=== PATIENT | male | born 1990 | race American Indian/Alaskan Native ===

== ENCOUNTER 2019-01-30 18:04 | Emergency (ER) | payer OTHER ==
--- NOTE | 2019-01-30 18:09 | Event Note ---
ED Screening Note ED Screening Note: SYNCOPE WITH FACIAL TRAUMA NO HX AMBULATORY This initial assessment/diagnostic orders/clinical plan/treatment(s) is/are subject to change based on patients health status, clinical progression and re- assessment by fellow clinical providers in the ED. Further treatment and workup at subsequent clinical providers discretion. Patient/guardian urged not to elope from the ED as their condition may be serious if not clinically assessed and managed. Initial orders include:
--- NOTE | 2019-01-30 18:58 | Cat Scan Report ---
PROCEDURE: CT HEAD/BRAIN WO CON TECHNIQUE: Computerized tomography of the head was performed without contrast material. CT DOSE LENGTH PRODUCT: 920.5 mGycm HISTORY: Syncope COMPARISONS: None . FINDINGS: No CT evidence of intracranial mass, hemorrhage, acute territorial infarction, or hydrocephalus. Intr acranial arteries are symmetric in density. Calvarium is intact. There is fluid in the right maxillar y sinus. There is also fluid in left sphenoid sinus. There is bilateral ethmoid sinus mucosal thicken ing. Mastoids are aerated. IMPRESSION: No CT evidence of acute intracranial abnormality . Sinus disease This document is electronically signed by Ella García MD., January 30 2019 06:56:00 PM ET
--- NOTE | 2019-01-30 19:02 | Cat Scan Report ---
PROCEDURE: CT FACIAL BONES WO CON TECHNIQUE: CT images of the maxillofacial structures were obtained without the use of IV contrast HISTORY: SYNCOPE COMPARISONS: None available FINDINGS: There is an acute depressed fracture of the right orbital floor. Fracture fragments are displaced inf eriorly by 4 mm. There is air in the right orbit. There is no inferior herniation of the inferior rec tus muscle. The right globe appears grossly unremarkable in CT appearance. There is also suspicion for a minimally displaced fracture of the right nasal bone. There is fluid within bilateral maxillary sinuses and the left sphenoid sinus. There is bilateral eth moid sinus mucosal thickening. Visualized portions of the mastoids are aerated. Temporomandibular joints are intact. There is dental disease. IMPRESSION: Acute right orbital floor fracture. Probable minimally displaced fracture of the right nasal bone This document is electronically signed by Ella García MD., January 30 2019 07:00:46 PM ET
[2019-01-30 19:06] LABS: Basophils % (Auto) 0.2 % (0.0-1.8); Eosinophils # (Auto) 0.2 K/mm3 (0.0-0.4); Eosinophils % (Auto) 1.4 % (0.0-4.3); Hemoglobin 15.9 gm/dl (11.8-15.2); Lymphocytes # (Auto) 1.1 K/mm3 (1.2-5.4); Lymphocytes % (Auto) 10.2 % (13.4-35.0); Mean Corpuscular HGB Conc 34 % (32-34); Mean Corpuscular Volume 90 fl (84-94); Monocytes # (Auto) 0.5 K/mm3 (0.0-0.8); Monocytes % (Auto) 4.2 % (0.0-7.3); Platelet Count 264 K/mm3 (140-440); Red Blood Count 5.21 M/mm3 (3.65-5.03); Red Cell Distribution Width 12.7 % (13.2-15.2)
[2019-01-30 19:22] LABS: Creatine Kinase MB 2.1 ng/mL (0.0-4.0)
[2019-01-30 19:25] LABS: Alanine Aminotransferase 23 units/L (7-56); Albumin 4.3 g/dL (3.9-5); BUN/Creatinine Ratio 11; Blood Urea Nitrogen 12 mg/dL (9-20); Calcium 9.7 mg/dL (8.4-10.2); Hemolysis Index 29
--- NOTE | 2019-01-30 19:26 | Cat Scan Report ---
PROCEDURE: CT cervical spine without contrast. TECHNIQUE: Computerized tomography of the cervical spine was performed from the skull base to T1 wit hout contrast material. CT DOSE LENGTH PRODUCT: 591.2 mGycm HISTORY: Syncope . COMPARISONS: None. FINDINGS: The cervical vertebrae have normal height and alignment. There are no fractures. There is no subluxat ion. The disc spaces are well-maintained. The spinal canal appears widely patent. The facet joints ap pear normal. The neural foramina are widely patent. The prevertebral soft tissues have normal thickne ss. IMPRESSION: Normal study. This document is electronically signed by Taye Garcia MD., January 30 2019 07:24:19 PM ET
[2019-01-30] MEDS ORDERED: NORCO 5/325 PO ONE (20:39)
--- NOTE | 2019-01-30 20:47 | Emergency Department Report ---
HPI - General Chief Complaint: Syncope Time Seen by Provider: 01/30/19 18:08 - HPI HPI: 28-year-old -[place] male presents the emergency department after passing out just prior to arrival and hitting his face. The patient says that he was unlocking the door and about to enter his home and "that is the last thing I remember." He woke up just inside of the door. He presents with some swelling and discomfort to the nose and face, around the right eye. He denies any past medical history. He is an occasional tobacco smoker but denies any ill icit drug. He says that he has never passed out before today. No recent travel or sick contacts at home. He does not have a primary care physician. ED Past Medical Hx - Past Medical History Previous Medical History?: No - Surgical History Past Surgical History?: No - Social History Smoking Status: Current Some Day Smoker Substance Use Type: None - Medications Home Medications: Home Medications Medication Instructions Recorded Confirmed Last Taken Type HYDROcodone/APAP 5-325 [[place] 1 each PO Q6HR PRN #12 tablet 01/30/19 Unknown Rx 5/325] ED Review of Systems ROS: Stated complaint: SYNCOPE Other details as noted in HPI Comment: All other systems reviewed and negative Constitutional: denies: chills, fever Eyes: denies: eye pain, vision change ENT: denies: ear pain, throat pain Respiratory: denies: cough, shortness of breath Cardiovascular: syncope. denies: chest pain Gastrointestinal: denies: abdominal pain, vomiting Genitourinary: denies: dysuria, discharge Musculoskeletal: denies: back pain, arthralgia Skin: other (abrasions, bruising). denies: rash Neurological: denies: numbness, paresthesias Physical Exam - Physical Exam Vital Signs: Vital Signs 01/30/19 19:53 Pulse Rate 66 Respiratory 15 Rate Blood Pressure 108/66 O2 Sat by Pulse 100 Oximetry Physical Exam: GENERAL: The patient is well-developed well-nourished. HENT: Normocephalic. Atraumatic. Patient has moist mucous membranes. EYES: Extraocular motions are intact. Pupils equal reactive to light bilaterally. No nystagmus. NECK: Supple. Trachea is midline. CHEST/LUNGS: Clear to auscultation. There is no respiratory distress noted. HEART/CARDIOVASCULAR: Regular. There is no tachycardia. There is no murmur. ABDOMEN: Abdomen is soft, nontender. Patient has normal bowel sounds. There is no abdominal distention. SKIN: There is some right lower orbital ecchymosis. There is some nonpitting swelling of the nasal bridge with an abrasion. NEURO: The patient is awake, alert, and oriented. The patient is cooperative. The patient has no focal neurologic deficits. The patient has normal speech. Cranial nerves II through XII grossly intact. No pronator drift. No dysmetria. No facial asymmetry. MUSCULOSKELETAL: There is no tenderness or deformity. There is no limitation range of motion. There is no evidence of acute injury. ED Course Vital Signs 01/30/19 19:53 Pulse Rate 66 Respiratory 15 Rate Blood Pressure 108/66 O2 Sat by Pulse 100 Oximetry - Consultations Consultation #1: 01/30/19 22:[address] interpreter underwriting operations manager, Dr Clements, was contacted to look at the patient's EKG but he agrees that it does not appear consistent with STEMI and is most likely some early repolarization and without chest pain the patient can be safely discharged home. ED Medical Decision Making - Lab Data Result diagrams: 01/30/19 18:52 01/30/19 18:52 - EKG Data -: EKG Interpreted by [facility] EKG shows normal: sinus rhythm, axis, intervals (mild prolongation of PA interval), QRS complexes, ST-T waves (nonspecific ST-T waves) - Radiology Data Radiology results: report reviewed PROCEDURE: CT cervical spine without contrast. TECHNIQUE: Computerized tomography of the cervical spine was performed from the skull base to T1 without contrast material. CT DOSE LENGTH PRODUCT: 591.2 mGycm HISTORY: Syncope . COMPARISONS: None. FINDINGS: The cervical vertebrae have normal height and alignment. There are no fractures. There is no subluxation. The disc spaces are well-maintained. The spinal canal appears widely patent. The facet joints appear normal. The neural foramina are widely patent. The prevertebral soft tissues have normal thickness. IMPRESSION: Normal study. PROCEDURE: CT HEAD/BRAIN WO CON TECHNIQUE: Computerized tomography of the head was performed without contrast material. CT DOSE LENGTH PRODUCT: 920.5 mGycm HISTORY: Syncope COMPARISONS: None . FINDINGS: No CT evidence of intracranial mass, hemorrhage, acute territorial infarction, or hydrocephalus. Intracranial arteries are symmetric in density. Calvarium is intact. There is fluid in the right maxillary sinus. There is also fluid in left sphenoid sinus. There is bilateral ethmoid sinus mucosal thickening. Mastoids are aerated. IMPRESSION: No CT evidence of acute intracranial abnormality . Sinus disease PROCEDURE: CT FACIAL BONES WO CON TECHNIQUE: CT images of the maxillofacial structures were obtained without the use of IV contrast HISTORY: SYNCOPE COMPARISONS: None available FINDINGS: There is an acute depressed fracture of the right orbital floor. Fracture fragments are displaced inferiorly by 4 mm. There is air in the right orbit. There is no inferior herniation of the inferior rectus muscle. The right globe appears grossly unremarkable in CT appearance. There is also suspicion for a minimally displaced fracture of the right nasal bone. There is fluid within bilateral maxillary sinuses and the left sphenoid sinus. There is bilateral ethmoid sinus mucosal thickening. Visualized portions of the mastoids are aerated. Temporomandibular joints are intact. There is dental disease. IMPRESSION: Acute right orbital floor fracture. Probable minimally displaced fracture of the right nasal bone - Medical Decision Making This patient presents to the emergency department after having a syncopal episode just prior to arrival. He fell forward and hit his face and head. He has been awake and alert since being in the emergency department. No focal, motor or sensory deficits and his cranial nerves are intact. He has some swelling to the nasal bridge with an abrasion, as well as some swelling and ecchymosis underneath the right eye. CT of the head did not show any bleed, shift, mass, ischemia, or any other acute process. CT of the cervical spine did not show any fracture, subluxation, or any acute process. CT of the facial bones shows a mildly displaced inferior orbital fracture without any entrapment of the inferior rectus muscle and suspicion for minimally displaced right nasal bone fracture. On examination the patient does have full extraocular motion intact. His labs have been unremarkable. His EKG showed some nonspecific ST-T wave changes. We discussed up with cardiology and the EKG was not concerning to them. The patient has been reevaluated multiple times for multiple hours and there has been no further episodes of passing out or any neurological deficits. He will be discharged home to follow up with his primary care provider and has been given a referral for some facial plastics physicians for evaluation of the facial fractures. He will return to the ER with any worsening of his symptoms or any acute distress. - Differential Diagnosis orthostatic hypotension, vasovagal, dysrhythmia, TIA Critical Care Time: No Critical care attestation.: If time is entered above; I have spent that time in minutes in the direct care of this critically ill patient, excluding procedure time. ED Disposition Clinical Impression: Syncope Qualifiers: Syncope type: unspecified Qualified Code(s): R55 - Syncope and collapse Orbital floor fracture Qualifiers: Encounter type: initial encounter Fracture type: closed Laterality: right Qualified Code(s): S02.31XA - Fracture of orbital floor, right side, initial encounter for closed fracture Nasal bone fracture Qualifiers: Encounter type: initial encounter Fracture type: closed Qualified Code(s): S0 2.2XXA - Fracture of nasal bones, initial encounter for closed fracture Disposition: TO HOME OR SELFCARE Is pt being admited?: No Condition: Stable Instructions: Nasal Fracture (ED), Facial Fracture (ED), Syncope (ED) Additional Instructions: Please follow up with a primary care physician. I'm giving you a referral for a facial plastics physician to be evaluated for your nasal bone and orbital fractures. Return to the emergency Department with any worsening of her symptoms or any acute distress. You have been prescribed a medication that is sedating and therefore should not be taken prior to driving, working, and responsible for children and in no way should be mixed with alcohol of any quantity. Prescriptions: HYDROcodone/APAP 5-325 [[place] 5/325] 1 each PO Q6HR PRN #12 tablet PRN Reason: Pain Referrals: PETRA PEREZ MD [Staff Physician] - 3-5 Days SHERRON FREDERICK MD [Staff Physician] - 3-5 Days Time of Disposition: 22:20
[2019-01-30] MEDS ORDERED: BOOSTRIX IM ONE (21:17)
[2019-01-30 22:35] VITALS: BP 115/70
== END 2019-01-30 23:21 | disposition home or self-care (01) ==
LOC: ED 18:04
DX: S02.31XA Fracture of orbital floor, right side, initial encounter for closed fracture (principal); S02.2XXA Fracture of nasal bones, initial encounter for closed fracture; R55 Syncope and collapse; F17.200 Nicotine dependence, unspecified, uncomplicated; W22.8XXA Striking against or struck by other objects, initial encounter; Y93.89 Activity, other specified; Y92.89 Other specified places as the place of occurrence of the external cause; Y99.8 Other external cause status
CPT/HCPCS: 36415; 70450; 70486; 72125; 80053; 82550; 82553; 82962; 84484; 85025; 90471; 90715; 93005; 93010